=== PATIENT | male | born 1990 | race Caucasian/White ===

== ENCOUNTER 2023-04-04 23:31 | Emergency (ER) | payer SELFPAY ==
[~2023-04-04] VITALS: Ht 170.2 cm; Wt 67.0 kg
[2023-04-05 00:29] VITALS: BP 116/36; PULSE 75; RESP 18; TEMP 98.6; O2SAT 100
== END 2023-04-05 09:13 | disposition home or self-care (01) ==
LOC: ER 23:31
DX: F15.10 Other stimulant abuse, uncomplicated (principal)
CPT/HCPCS: 99281